=== PATIENT | female | born 1980 | race Two or more races ===

== ENCOUNTER 2018-05-11 20:13 | Observation (INO) | payer MEDICAID, OTHER ==
[~2018-05-11] VITALS: Ht 149.9 cm; Wt 67.1 kg
[2018-05-11] MEDS ORDERED: LACTATED RINGER'S 1,000 ML IV SCH (20:53)
[2018-05-11] MEDS ORDERED: TERBUTALINE SULFATE 1 MG/ML 1ML VIAL SC ONE (20:59)
[2018-05-11] MEDS: TERBUTALINE SULFATE 1 MG/ML 1ML VIAL SC SCH ×2 (21:30→21:52)
[2018-05-15] MEDS ORDERED: PREN-96 PO (10:46)
== END 2018-05-11 22:20 | disposition home or self-care (01) | DRG 566 ==
LOC: LDRP 20:13
PROVIDERS: ADMIT Specialist; ATTEND Specialist
DX: O62.9 Abnormality of forces of labor, unspecified (principal); O09.523 Supervision of elderly multigravida, third trimester; O26.893 Other specified pregnancy related conditions, third trimester; N89.8 Other specified noninflammatory disorders of vagina; Z3A.38 38 weeks gestation of pregnancy
CPT/HCPCS: 59025; 81002; 94760; 96372; G0378; J3105; 96365; 96366

== ENCOUNTER 2018-06-07 12:59 | Emergency (ER) | payer MEDICAID ==
[~2018-06-07] VITALS: Ht 172.7 cm; Wt 58.1 kg
[~2018-06-07 12:59] MED LIST: PREN-96 PO
[2018-06-07] MEDS ORDERED: ACETAMINOPHEN 325 MG TAB PO ONE ×2 (13:30)
[2018-06-07 14:10] VITALS: BP 139/94
[2018-06-07] MEDS ORDERED: cefTRIAXone SOD 1,000 MG VL IM ONE (15:15)
== END 2018-06-07 15:44 | disposition home or self-care (01) ==
LOC: ER 12:59
DX: J02.9 Acute pharyngitis, unspecified (principal)
CPT/HCPCS: 81025; 96372; 99283; J0696